=== PATIENT | male | born 1960 | race Caucasian/White ===

== ENCOUNTER 2018-09-10 11:51 | Emergency (ER) | payer BC ==
[2018-09-10] MEDS ORDERED: Thiamine 100 MG in Sodium Chloride 0.9% 100 ML IV ONE (12:25)
[2018-09-10] MEDS ORDERED: Sodium Chloride 0.9% 1,000 ML IV ONE ×2 (12:25→14:34)
[2018-09-10] MEDS ORDERED: LORazepam 2 MG/ML SDV IVPUSH ONE (12:29)
[2018-09-10] MEDS ORDERED: Folic Acid 1 MG Tab PO STA (14:36)
[2018-09-10] MEDS ORDERED: Multivitamin Tab PO STA (14:36)
[2018-09-10] MEDS ORDERED: Sodium Chloride 0.9% 10 ML Syringe FLUSH PRN (14:36)
--- NOTE | 2018-09-10 15:55 | EDM.PDOC ---
ED HPI GENERAL MEDICAL PROBLEM - General Chief Complaint: Drug or Alcohol Abuse Stated Complaint: WITHDRAWAL Time Seen by Provider: 09/10/18 12:05 Source of Information: Reports: Patient, Family History Limitations: Reports: Intoxication - History of Present Illness INITIAL COMMENTS - FREE TEXT/NARRATIVE: 57 y.o.w.m S/P Prostate CA, came with his to the ED due to heavy ETOH intake. As per , last drink was last night, but she has no control over his drinking habits. Pt is not able to give a HPI due to his intoxication. CIWAA Assessment was 3. He may have hit his head. Pt denies H/A , no F/C no N/V no SOB. Pt does bench drinking every 3 weeks or so. BP 134/101 Pulse 110 RR 30 Pulse ox 99% on RA Temp 36.7 Onset Date: 09/09/18 Onset Time: 19:00 Duration: Hour(s):, Day(s):, Intermittent Location: Reports: Generalized Quality: Reports: Dull Improves with: Reports: Rest Worsens with: Reports: Movement Context: Reports: Other (ETOH intoxicated) Associated Symptoms: Reports: Confusion - Related Data Allergies Allergy/AdvReac Type Severity Reaction Status Date / Time No Known Allergies Allergy Verified 11/09/13 08:57 Past Medical History Cardiovascular History: Reports: Hypertension Psychiatric History: Reports: Addiction, Other (See Below) Other Psychiatric History: ETOH addiction/withdrawal Oncologic (Cancer) History: Reports: Colon - Past Surgical History Other Oncologic Surgeries/Procedures: Surgery on the colon Social & Family History - Family History Family Medical History: Unobtainable - Tobacco Use Smoking Status *Q: Never Smoker Second Hand Smoke Exposure: No - Caffeine Use Caffeine Use: Reports: Coffee - Alcohol Use Days Per Week of Alcohol Use: 7 Number of Drinks Per Day: 10 Total Drinks Per Week: 70 Date of Last Drink: 09/09/18 - Recreational Drug Use Recreational Drug Use: No ED ROS GENERAL - Review of Systems Review Of Systems: Unable To Obtain (intoxicated) - Physical Exam Exam: See Below Exam Limited By: Intoxication General Appearance: Lethargic Eye Exam: Bilateral Eye: Nystagmus Ears: Normal External Exam Nose: Normal Inspection, Normal Mucosa Throat/Mouth: Normal Inspection, Normal Lips, Normal Voice, No Airway Compromise Head Exam: Normocephalic, Scalp Abrasions (minor) Neck: Normal Inspection, Supple, Non-Tender, Full Range of Motion Respiratory/Chest: No Respiratory Distress, Lungs Clear, Normal Breath Sounds, No Accessory Muscle Use, Chest Non-Tender Cardiovascular: Normal Peripheral Pulses, Regular Rate, Rhythm GI/Abdominal: Normal Bowel Sounds, Soft, Non-Tender, No Organomegaly, No Abnormal Bruit, No Mass, Pelvis Stable (Male) Exam: Deferred Rectal (Males) Exam: Deferred Neuro Exam (Abbreviated): Slow to Respond Back Exam: Normal Inspection, Full Range of Motion Extremities: Normal Inspection, Normal Range of Motion, Non-Tender, Normal Capillary Refill Psychiatric: Other (intoxicated) Skin Exam: Warm, Dry, Intact, Normal Color, No Rash EKG INTERPRETATION EKG Date: 09/10/18 Time: 14:45 Rhythm: NSR Rate (Beats/Min): 94 [place]: Normal P-Wave: Present QRS: Normal ST-T: Normal QT: Normal Comparison: NA - No Prior EKG Course - Vital Signs Text/Narrative:: 57 y.o.w.m S/P Prostate CA, came with his to the ED due to heavy ETOH intake. As per , last drink was last night, but she has no control over his drinking habits. Pt is not able to give a HPI due to his intoxication. CIWAA Assessment was 3. He may have hit his head. Pt denies H/A , no F/C no N/V no SOB. Pt does bench drinking every 3 weeks or so. BP 134/101 Pulse 110 RR 30 Pulse ox 99% on RA Temp 36.7 PE: WNWD W M with strong ETOH odor. Labs: CNC/BMP al Nl ETOH 0.34 Impression: ETOH intox S/P prostate CA, Tumor left [place], benign. Tx: NS, Thiamin, Folic acid, MVT, Reexam: Pt was able to ambulate. Plan: D/C with and instructions Last Recorded V/S: Last Vital Signs Temp 36.6 C 09/10/18 12:05 Pulse 110 H 09/10/18 12:05 Resp 30 H 09/10/18 12:05 BP 134/101 H 09/10/18 12:05 Pulse Ox 99 09/10/18 12:05 - Orders/Labs/Meds Orders: Active Orders 24 hr Category Date Time Status CIWAA Assessment [RC] Q1H Care 09/10/18 14:36 Active EKG Documentation Completion [RC] ASDIRECTED Care 09/10/18 14:52 Active Notify Provider [RC] PRN Care 09/10/18 14:36 Active Sodium Chloride 0.9% [Normal Saline] 1,000 ml Med 09/10/18 16:00 Active IV ASDIRECTED Sodium Chloride 0.9% [Saline Flush] Med 09/10/18 14:36 Active 10 ml FLUSH ASDIRECTED PRN Peripheral IV Insertion Adult [OM.PC] Stat Oth 09/10/18 14:36 Ordered Seizure Precautions [OM.PC] Routine Oth 09/10/18 12:28 Ordered EKG 12 Lead [EK] Routine Ther 09/10/18 14:52 Ordered Medication Orders Sodium Chloride (Normal Saline) 1,000 mls @ 125 mls/hr IV ASDIRECTED MI Last Admin: 09/10/18 15:53 Dose: 125 mls/hr Sodium Chloride (Saline Flush) 10 ml FLUSH ASDIRECTED PRN PRN Reason: Keep Vein Open Labs: Laboratory Tests 09/10/18 09/10/18 09/10/18 Range/Units 12:20 12:20 12:20 WBC 4.7 (4.5-12.0) X10-3/uL RBC 4.98 (4.30-5.75) x10(6)uL Hgb 14.8 (13.5-17.8) g/dL Hct 42.8 (30.0-51.3) % MCV 86.0 (80-96) fL MCH 29.8 (27.7-33.6) pg MCHC 34.7 (32.2-35.4) g/dL RDW 13.3 (11.5-15.5) % Plt Count 352 (125-369) X10(3)uL MPV 6.3 L (7.4-10.4) fL Neut % (Auto) 73.6 (46-82) % Lymph % (Auto) 18.3 (13-37) % [place] % (Auto) 5.6 (4-12) % Eos % (Auto) 1 (1.0-5.0) % Baso % (Auto) 1 (0-2) % Neut # (Auto) 3.3 (1.6-8.3) # Lymph # (Auto) 0.9 (0.6-5.0) # [place] # (Auto) 0.3 (0.0-1.3) # Eos # (Auto) 0.1 (0.0-0.8) # Baso # (Auto) 0.1 (0.0-0.2) # PT 10.1 (8.7-11.1) INR 1.04 (0.89-1.13) Sodium 142 (135-145) mmol/L Potassium 3.7 (3.5-5.3) mmol/L Chloride 104 (100-110) mmol/L Carbon Dioxide 25 (21-32) mmol/L BUN 10 (7-18) mg/dL Creatinine 0.8 (0.70-1.30) mg/dL Est Cr Clr Drug Dosing TNP Estimated GFR (MDRD) > 60 (>60) BUN/Creatinine Ratio 12.5 (9-20) Glucose 110 (80-116) mg/dL Calcium 9.0 (8.6-10.2) mg/dL Magnesium (1.8-2.5) mg/dL Creatine Kinase (60-160) IU/L Urine Color (YELLOW) Urine Appearance (CLEAR) Urine pH (5.0-6.5) Ur Specific [place] (1.010-1.025) Urine Protein (NEGATIVE) mg/dL Urine Glucose (UA) (NORMAL) mg/dL Urine Ketones (NEGATIVE) mg/dL Urine Occult Blood (NEGATIVE) Urine Nitrite (NEGATIVE) Urine Bilirubin (NEGATIVE) Urine Urobilinogen (NEGATIVE) mg/dL Ur Leukocyte Esterase (NEGATIVE) Urine RBC (0-5) Urine WBC (0-5) Ur Squamous Epith Cells (NS,R,O) Urine Bacteria (NS) Urine Mucus (NS) Urine Opiates Screen (NEGATIVE) Ur Oxycodone Screen (NEGATIVE) Ur Propoxyphene Screen (NEGATIVE) Ur Barbituates Screen (NEGATIVE) Ur Tricyclics Screen (NEGATIVE) Ur Phencyclidine Scrn (NEGATIVE) Ur Amphetamine Screen (NEGATIVE) Urine MDMA Screen (NEGATIVE) U Benzodiazepines Scrn (NEGATIVE) U Cocaine Metab Screen (NEGATIVE) U Marijuana (THC) Screen (NEGATIVE) Ethyl Alcohol (<0.03) % 09/10/18 09/10/18 09/10/18 Range/Units 12:20 12:20 14:05 WBC (4.5-12.0) X10-3/uL RBC (4.30-5.75) x10(6)uL Hgb (13.5-17.8) g/dL Hct (30.0-51.3) % MCV (80-96) fL MCH (27.7-33.6) pg MCHC (32.2-35.4) g/dL RDW (11.5-15.5) % Plt Count (125-369) X10(3)uL MPV (7.4-10.4) fL Neut % (Auto) (46-82) % Lymph % (Auto) (13-37) % [place] % (Auto) (4-12) % Eos % (Auto) (1.0-5.0) % Baso % (Auto) (0-2) % Neut # (Auto) (1.6-8.3) # Lymph # (Auto) (0.6-5.0) # [place] # (Auto) (0.0-1.3) # Eos # (Auto) (0.0-0.8) # Baso # (Auto) (0.0-0.2) # PT (8.7-11.1) INR (0.89-1.13) Sodium (135-145) mmol/L Potassium (3.5-5.3) mmol/L Chloride (100-110) mmol/L Carbon Dioxide (21-32) mmol/L BUN (7-18) mg/dL Creatinine (0.70-1.30) mg/dL Est Cr Clr Drug Dosing Estimated GFR (MDRD) (>60) BUN/Creatinine Ratio (9-20) Glucose (80-116) mg/dL Calcium (8.6-10.2) mg/dL Magnesium 2.3 (1.8-2.5) mg/dL Creatine Kinase (60-160) IU/L Urine Color Yellow (YELLOW) Urine Appearance Clear (CLEAR) Urine pH 5.0 (5.0-6.5) Ur Specific [place] 1.015 (1.010-1.025) Urine Protein Negative (NEGATIVE) mg/dL Urine Glucose (UA) Normal (NORMAL) mg/dL Urine Ketones Negative (NEGATIVE) mg/dL Urine Occult Blood Negative (NEGATIVE) Urine Nitrite Negative (NEGATIVE) Urine Bilirubin Negative (NEGATIVE) Urine Urobilinogen Normal (NEGATIVE) mg/dL Ur Leukocyte Esterase Negative (NEGATIVE) Urine RBC 0-5 (0-5) Urine WBC 0-5 (0-5) Ur Squamous Epith Cells Rare (NS,R,O) Urine Bacteria Few H (NS) Urine Mucus Few H (NS) Urine Opiates Screen (NEGATIVE) Ur Oxycodone Screen (NEGATIVE) Ur Propoxyphene Screen (NEGATIVE) Ur Barbituates Screen (NEGATIVE) Ur Tricyclics Screen (NEGATIVE) Ur Phencyclidine Scrn (NEGATIVE) Ur Amphetamine Screen (NEGATIVE) Urine MDMA Screen (NEGATIVE) U Benzodiazepines Scrn (NEGATIVE) U Cocaine Metab Screen (NEGATIVE) U Marijuana (THC) Screen (NEGATIVE) Ethyl Alcohol 0.34 H* (<0.03) % 09/10/18 09/10/18 09/10/18 Range/Units 14:05 15:33 15:33 WBC (4.5-12.0) X10-3/uL RBC (4.30-5.75) x10(6)uL Hgb (13.5-17.8) g/dL Hct (30.0-51.3) % MCV (80-96) fL MCH (27.7-33.6) pg MCHC (32.2-35.4) g/dL RDW (11.5-15.5) % Plt Count (125-369) X10(3)uL MPV (7.4-10.4) fL Neut % (Auto) (46-82) % Lymph % (Auto) (13-37) % [place] % (Auto) (4-12) % Eos % (Auto) (1.0-5.0) % Baso % (Auto) (0-2) % Neut # (Auto) (1.6-8.3) # Lymph # (Auto) (0.6-5.0) # [place] # (Auto) (0.0-1.3) # Eos # (Auto) (0.0-0.8) # Baso # (Auto) (0.0-0.2) # PT (8.7-11.1) INR (0.89-1.13) Sodium (135-145) mmol/L Potassium (3.5-5.3) mmol/L Chloride (100-110) mmol/L Carbon Dioxide (21-32) mmol/L BUN (7-18) mg/dL Creatinine (0.70-1.30) mg/dL Est Cr Clr Drug Dosing Estimated GFR (MDRD) (>60) BUN/Creatinine Ratio (9-20) Glucose (80-116) mg/dL Calcium (8.6-10.2) mg/dL Magnesium (1.8-2.5) mg/dL Creatine Kinase 244 H (60-160) IU/L Urine Color (YELLOW) Urine Appearance (CLEAR) Urine pH (5.0-6.5) Ur Specific [place] (1.010-1.025) Urine Protein (NEGATIVE) mg/dL Urine Glucose (UA) (NORMAL) mg/dL Urine Ketones (NEGATIVE) mg/dL Urine Occult Blood (NEGATIVE) Urine Nitrite (NEGATIVE) Urine Bilirubin (NEGATIVE) Urine Urobilinogen (NEGATIVE) mg/dL Ur Leukocyte Esterase (NEGATIVE) Urine RBC (0-5) Urine WBC (0-5) Ur Squamous Epith Cells (NS,R,O) Urine Bacteria (NS) Urine Mucus (NS) Urine Opiates Screen Negative (NEGATIVE) Ur Oxycodone Screen Negative (NEGATIVE) Ur Propoxyphene Screen Negative (NEGATIVE) Ur Barbituates Screen Negative (NEGATIVE) Ur Tricyclics Screen Positive H (NEGATIVE) Ur Phencyclidine Scrn Negative (NEGATIVE) Ur Amphetamine Screen Negative (NEGATIVE) Urine MDMA Screen Negative (NEGATIVE) U Benzodiazepines Scrn Negative (NEGATIVE) U Cocaine Metab Screen Negative (NEGATIVE) U Marijuana (THC) Screen Negative (NEGATIVE) Ethyl Alcohol 0.24 H* (<0.03) % Meds: Medications Generic Name Dose Route Start Last Admin Trade Name Freq PRN Reason Stop Dose Admin Sodium Chloride 1,000 mls @ 125 mls/hr 09/10/18 16:00 09/10/18 15:53 Normal Saline IV 125 mls/hr ASDIRECTED MI Administration Sodium Chloride 10 ml 09/10/18 14:36 Saline Flush FLUSH ASDIRECTED PRN Keep Vein Open Discontinued Medications Generic Name Dose Route Start Last Admin Trade Name Freq PRN Reason Stop Dose Admin Folic Acid 1 mg 09/10/18 14:36 09/10/18 14:55 Folic Acid PO 09/10/18 14:37 1 mg ONETIME STA Administration Sodium Chloride 1,000 mls @ 999 mls/hr 09/10/18 12:25 09/10/18 12:30 Normal Saline IV 09/10/18 13:25 999 mls/hr .BOLUS ONE Administration Thiamine HCl 100 mg/ Sodium 101 mls @ 202 mls/hr 09/10/18 12:25 09/10/18 13: 06 Chloride IV 09/10/18 12:26 202 mls/hr ONETIME ONE Administration Sodium Chloride 1,000 mls @ 999 mls/hr 09/10/18 14:34 09/10/18 13:30 Normal Saline IV 09/10/18 15:34 999 mls/hr .BOLUS ONE Administration Lorazepam 1 mg 09/10/18 12:29 09/10/18 13:09 Ativan IVPUSH 09/10/18 12:30 1 mg ONETIME ONE Administration Multivitamins/Minerals/Vitamin C 1 tab 09/10/18 14:36 09/10/18 14:55 Tab-A-Ashly PO 09/10/18 14:37 1 tab ONETIME STA Administration Departure - Departure Time of Disposition: 17:34 Disposition: Home, Self-Care 01 Condition: Good Clinical Impression: ETOH abuse - Discharge Information Instructions: Delirium Tremens, [id number], Alcohol Withdrawal Syndrome, Easy -to-Read Referrals: PCP,None [Primary Care Provider] - Forms: ED Department Discharge Additional Instructions: Please cont your current meds, please increase water intake, please f/u, come back if your symptoms get worse acutely - My Orders Last 24 Hours: My Active Orders 09/10/18 12:28 Seizure Precautions [OM.PC] Routine 09/10/18 14:36 CIWAA Assessment [RC] Q1H Notify Provider [RC] PRN Sodium Chloride 0.9% [Saline Flush] 10 ml FLUSH ASDIRECTED PRN Peripheral IV Insertion Adult [OM.PC] Stat 09/10/18 14:52 EKG Documentation Completion [RC] ASDIRECTED EKG 12 Lead [EK] Routine 09/10/18 16:00 Sodium Chloride 0.9% [Normal Saline] 1,000 ml IV ASDIRECTED - Assessment/Plan Last 24 Hours: My Active Orders 09/10/18 12:28 Seizure Precautions [OM.PC] Routine 09/10/18 14:36 CIWAA Assessment [RC] Q1H Notify Provider [RC] PRN Sodium Chloride 0.9% [Saline Flush] 10 ml FLUSH ASDIRECTED PRN Peripheral IV Insertion Adult [OM.PC] Stat 09/10/18 14:52 EKG Documentation Completion [RC] ASDIRECTED EKG 12 Lead [EK] Routine 09/10/18 16:00 Sodium Chloride 0.9% [Normal Saline] 1,000 ml IV ASDIRECTED
[2018-09-10] MEDS ORDERED: Sodium Chloride 0.9% 1,000 ML IV SCH (16:00)
== END 2018-09-10 17:52 | disposition home or self-care (01) ==
LOC: FB.ED 11:51
DX: S00.01XA Abrasion of scalp, initial encounter (principal); F10.129 Alcohol abuse with intoxication, unspecified; Y90.8 Blood alcohol level of 240 mg/100 ml or more; D33.4 Benign neoplasm of spinal cord; Z85.46 Personal history of malignant neoplasm of prostate; W18.39XA Other fall on same level, initial encounter
CPT/HCPCS: 36415; 80048; 80305; 81001; 82550; 83735; 85025; 85610; 93005; 96361; 96365; 96375; 99285; A9270; G0480; J2060; J3411; J7030